=== PATIENT | male | born 1970 | race Caucasian/White ===

== ENCOUNTER 2019-05-23 22:17 | Inpatient (IN) ==
[2019-05-23] MEDS ORDERED: Ipratropium/Albuterol Neb 3 ML IH ONE (23:01)
[2019-05-23] MEDS ORDERED: Furosemide 40 MG/4 ML VIAL IVP ONE (23:01)
[2019-05-24 00:18] LABS: Hematocrit 33.5 % (37.5-50.1); Hemoglobin 10.1 g/dL (12.9-16.9); Immature Granulocytes % 0.3 % (0-4); Lymphocytes # 0.7 K/mcL (0.6-4.6); Lymphocytes % 10.9 %; Mean Corpuscular HGB Conc 30.1 g/dL (31.6-35.5); Mean Corpuscular Hemoglobin 22.7 pg (28.0-33.3); Mean Corpuscular Volume 75.5 fL (83.0-100.0); Mean Platelet Volume 10.7 fL (9.4-12.4); Monocytes # 0.2 K/mcL (0.0-1.3); Monocytes % 3.9 %; Neutrophils # 5.2 K/mcL (1.6-8.9); Platelet Count 190 K/mcL (140-400); Red Blood Count 4.44 M/mcL (4.19-5.50); Red Cell Distribution Width 22.7 % (11.5-14.5); Segmented Neutrophils % 84.9 %; White Blood Count 6.2 K/mcL (4.3-11.1)
[2019-05-24 00:21] LABS: ABG Base Excess 3 mEq/L (-2 to 3); ABG HCO3 27 mEq/L (21-27); ABG Oxygen Saturation 87 % (95-98); ABG PCO2 40 mmHg (35-45); ABG PH 7.44 pH Units (7.32-7.45); ABG PO2 51 mmHg (85-104); ABG TCO2 29 mEq/L (20-26)
[2019-05-24 00:39] LABS: Albumin 3.1 g/dL (3.5-5.7); Albumin/Globulin Ratio 0.8 (1.1-2.2); Bilirubin,Direct 0.6 mg/dL (0.0-0.2); Bilirubin,Indirect 0.5 mg/dL (0.0-1.2); Bilirubin,Total 1.1 mg/dL (0.3-1.0); Globulin 3.8 g/dL (2.4-3.5); Total Protein 6.9 g/dL (6.4-8.9)
[2019-05-24 00:54] LABS: BUN/Creatinine Ratio 40 (6-26); Blood Urea Nitrogen 44 mg/dL (6-20); Calcium 8.7 mg/dL (8.6-10.3); Carbon Dioxide 24 mEq/L (23-29); Chloride 97 mEq/L (98-107); Glucose 98 mg/dL (70-105); Osmolality,Calculated 287 (280-300); Potassium 3.4 mEq/L (3.5-5.1); Sodium 133 mEq/L (136-145); Troponin I 0.05 ng/mL (< 0.04); eGFR For African Americans > 60 (> 60); eGFR For Non-African Americans > 60 (> 60)
[2019-05-24] MEDS ORDERED: cefTRIAXone 2,000 MG in 0.9 % Sodium Chloride Mini Bag 100 ML IVPB ONE (01:27)
[2019-05-24] MEDS ORDERED: Isovue-370 500 ML BOTTLE IVP ONE (02:18)
[2019-05-24] MEDS ORDERED: *HR* LORazepam 2 MG/ML VIAL IVP ONE ×3 (04:43→23:07)
[2019-05-24] MEDS ORDERED: Naloxone 0.4 MG/ML INJ IVP PRN (08:15)
[2019-05-24 09:33] LABS: INR 1.5; Prothrombin Time 16.7 Seconds (9.4-12.1)
[2019-05-24 09:43] LABS: Albumin 2.9 g/dL (3.5-5.7)
[2019-05-24] MEDS: Ipratropium/Albuterol Neb 3 ML IH SCH ×3 (10:11→22:01)
[2019-05-24 15:48] LABS: ABG Base Excess 0 mEq/L (-2 to 3); ABG HCO3 25 mEq/L (21-27); ABG Oxygen Saturation 90 % (95-98); ABG PCO2 42 mmHg (35-45); ABG PH 7.39 pH Units (7.32-7.45); ABG PO2 60 mmHg (85-104); ABG TCO2 26 mEq/L (20-26)
[2019-05-24] MEDS ORDERED: Dexmedetomidine HCl 400 MCG/100 ML MLS IVC ONE (16:29)
[2019-05-24] MEDS: Furosemide 40 MG/4 ML VIAL IVP SCH ×2 (17:12→21:05)
[2019-05-24] MEDS: Doxycycline 100 MG in 0.9 % Sodium Chloride Mini Bag 100 ML IVPB SCH (17:17)
[2019-05-24] MEDS: Piperacillin/Tazobactam 3.375 GM in 0.9 % Sodium Chloride Mini Bag 100 ML IVPB SCH ×2 (17:17→23:21)
[2019-05-24] MEDS: Dexmedetomidine HCl 400 MCG/100 ML MLS IVC SCH ×2 (17:18→23:14)
[2019-05-24 18:27] LABS: BUN/Creatinine Ratio 47 (6-26); Blood Urea Nitrogen 42 mg/dL (6-20); Calcium 8.1 mg/dL (8.6-10.3); Carbon Dioxide 23 mEq/L (23-29); Chloride 103 mEq/L (98-107); Glucose 86 mg/dL (70-105); Osmolality,Calculated 294 (280-300); Potassium 3.2 mEq/L (3.5-5.1); Sodium 137 mEq/L (136-145); eGFR For African Americans > 60 (> 60); eGFR For Non-African Americans > 60 (> 60)
[2019-05-24 19:58] LABS: RBC,Pleural Fluid 0.008 M/mcL
[2019-05-24 20:10] LABS: Glucose,Pleural Fluid 110 mg/dL (No Ref Range); LDH,Pleural Fluid 97 Units/L (No Ref Range); Total Protein,Pleural Fluid < 3.0 g/dL
[2019-05-24 20:51] LABS: Appearance of Pleural Fl Hazy (Clear)
[2019-05-24 20:59] LABS: Basophils,Pleural Fluid 0 %; Eosinophils,Pleural Fluid 0 %
[2019-05-24] MEDS ORDERED: Amiodarone Premix 360 MG/200 ML BAG IVC ONE (21:00)
[2019-05-24] MEDS ORDERED: Perflutren Lipid Microsphere 1.3 ML in 0.9 % Sodium Chloride 8.7 ML IVP ONE (21:14)
[2019-05-25] MEDS ORDERED: Amiodarone Premix 360 MG/200 ML BAG IVC SCH (03:00)
[2019-05-25] MEDS: Ipratropium/Albuterol Neb 3 ML IH SCH ×4 (04:21→22:32)
[2019-05-25] MEDS: Dexmedetomidine HCl 400 MCG/100 ML MLS IVC SCH ×5 (04:29→21:00)
[2019-05-25 05:23] LABS: ABG Base Excess 2 mEq/L (-2 to 3); ABG HCO3 28 mEq/L (21-27); ABG Oxygen Saturation 98 % (95-98); ABG PCO2 48 mmHg (35-45); ABG PH 7.38 pH Units (7.32-7.45); ABG PO2 115 mmHg (85-104); ABG TCO2 29 mEq/L (20-26)
[2019-05-25 05:48] LABS: Hematocrit 37.7 % (37.5-50.1); Hemoglobin 11.1 g/dL (12.9-16.9); Immature Granulocytes % 0.2 % (0-4); Lymphocytes # 0.4 K/mcL (0.6-4.6); Mean Corpuscular HGB Conc 29.4 g/dL (31.6-35.5); Mean Corpuscular Hemoglobin 22.5 pg (28.0-33.3); Mean Corpuscular Volume 76.5 fL (83.0-100.0); Mean Platelet Volume 10.4 fL (9.4-12.4); Monocytes # 0.2 K/mcL (0.0-1.3); Neutrophils # 3.7 K/mcL (1.6-8.9); Platelet Count 148 K/mcL (140-400); Red Blood Count 4.93 M/mcL (4.19-5.50); Red Cell Distribution Width 23.9 % (11.5-14.5); Segmented Neutrophils % 85.8 %; White Blood Count 4.3 K/mcL (4.3-11.1)
[2019-05-25] MEDS: Doxycycline 100 MG in 0.9 % Sodium Chloride Mini Bag 100 ML IVPB SCH ×2 (06:05→18:19)
[2019-05-25 06:06] LABS: BUN/Creatinine Ratio 40 (6-26); Blood Urea Nitrogen 39 mg/dL (6-20); Calcium 8.2 mg/dL (8.6-10.3); Carbon Dioxide 26 mEq/L (23-29); Chloride 103 mEq/L (98-107); Glucose 101 mg/dL (70-105); Osmolality,Calculated 302 (280-300); Potassium 3.3 mEq/L (3.5-5.1); Sodium 141 mEq/L (136-145); eGFR For African Americans > 60 (> 60); eGFR For Non-African Americans > 60 (> 60)
[2019-05-25 06:09] LABS: Anisocytosis 3+ (Not Present); Macrocytosis Present (Not Present); Microcytosis Present (Not Present); Platelet Estimate Normal (Normal); Poikilocytosis 1+ (Not Present); Target Cells 1+ (Not Present)
[2019-05-25] MEDS ORDERED: Potassium Phosphate 44 MEQ in 0.9 % Sodium Chloride 250 ML IVPB PRN (08:13)
[2019-05-25 08:29] LABS: Magnesium 1.8 mg/dL (1.6-2.6); Phosphorous 3.6 mg/dL (2.7-4.5)
[2019-05-25] MEDS ORDERED: cefTRIAXone 1,000 MG in Water for inj. (sterile) 10 ML IVP SCH (09:00)
[2019-05-25] MEDS: Piperacillin/Tazobactam 3.375 GM in 0.9 % Sodium Chloride Mini Bag 100 ML IVPB SCH ×3 (09:12→23:44)
[2019-05-25 09:21] LABS: VBG Ionized Calcium 1.01 mmol/L (1.15-1.35)
[2019-05-25] MEDS: Metoprolol XL (24 HR) Succ 25 MG TAB.ER.24H PO SCH (14:06)
[2019-05-25] MEDS: Calcium Gluconate 1gm/50mL 1 GM/50 ML BAG IVPB PRN (15:13)
[2019-05-25] MEDS: *HR* LORazepam 2 MG/ML VIAL IVP PRN (21:00)
[2019-05-25 22:02] LABS: Magnesium 2.1 mg/dL (1.6-2.6); Potassium 3.6 mEq/L (3.5-5.1)
[2019-05-26] MEDS: Ipratropium/Albuterol Neb 3 ML IH SCH ×4 (04:08→21:30)
[2019-05-26] MEDS: Doxycycline 100 MG in 0.9 % Sodium Chloride Mini Bag 100 ML IVPB SCH ×2 (05:34→17:55)
[2019-05-26 06:08] LABS: Eosinophils % 0.2 %; Immature Granulocytes % 0.2 % (0-4); Lymphocytes # 0.6 K/mcL (0.6-4.6); Lymphocytes % 11.6 %; Mean Corpuscular Hemoglobin 21.9 pg (28.0-33.3); Mean Corpuscular Volume 75.4 fL (83.0-100.0); Mean Platelet Volume 10.4 fL (9.4-12.4); Monocytes # 0.2 K/mcL (0.0-1.3); Monocytes % 3.4 %; Platelet Count 144 K/mcL (140-400); Red Blood Count 4.11 M/mcL (4.19-5.50); Red Cell Distribution Width 23.2 % (11.5-14.5); Segmented Neutrophils % 84.6 %; White Blood Count 4.7 K/mcL (4.3-11.1)
[2019-05-26] MEDS: *HR* LORazepam 2 MG/ML VIAL IVP PRN ×4 (06:08→22:48)
[2019-05-26] MEDS: Dexmedetomidine HCl 400 MCG/100 ML MLS IVC SCH ×4 (06:09→21:22)
[2019-05-26 06:13] LABS: Anisocytosis 2+ (Not Present); Platelet Estimate Normal (Normal)
[2019-05-26 06:15] LABS: BUN/Creatinine Ratio 42 (6-26); Blood Urea Nitrogen 38 mg/dL (6-20); Calcium 7.9 mg/dL (8.6-10.3); Carbon Dioxide 27 mEq/L (23-29); Chloride 109 mEq/L (98-107); Glucose 105 mg/dL (70-105); Osmolality,Calculated 303 (280-300); Phosphorous 3.6 mg/dL (2.7-4.5); Potassium 3.5 mEq/L (3.5-5.1); Sodium 142 mEq/L (136-145); eGFR For African Americans > 60 (> 60); eGFR For Non-African Americans > 60 (> 60)
[2019-05-26] MEDS ORDERED: *HR* Metoprolol 5 MG/5 ML VIAL IVP ONE (07:51)
[2019-05-26] MEDS: Metoprolol XL (24 HR) Succ 25 MG TAB.ER.24H PO SCH (07:56)
[2019-05-26] MEDS: Piperacillin/Tazobactam 3.375 GM in 0.9 % Sodium Chloride Mini Bag 100 ML IVPB SCH ×3 (08:00→23:52)
[2019-05-26 10:46] LABS: ABG Base Excess 3 mEq/L (-2 to 3); ABG HCO3 29 mEq/L (21-27); ABG Oxygen Saturation 83 % (95-98); ABG PCO2 49 mmHg (35-45); ABG PH 7.38 pH Units (7.32-7.45); ABG PO2 49 mmHg (85-104); ABG TCO2 30 mEq/L (20-26)
[2019-05-27] MEDS: *HR* LORazepam 2 MG/ML VIAL IVP PRN ×5 (00:39→19:20)
[2019-05-27] MEDS: Dexmedetomidine HCl 400 MCG/100 ML MLS IVC SCH ×5 (02:30→22:01)
[2019-05-27] MEDS: Ipratropium/Albuterol Neb 3 ML IH SCH ×4 (03:45→21:43)
[2019-05-27] MEDS: Doxycycline 100 MG in 0.9 % Sodium Chloride Mini Bag 100 ML IVPB SCH ×2 (06:18→17:05)
[2019-05-27] MEDS: Piperacillin/Tazobactam 3.375 GM in 0.9 % Sodium Chloride Mini Bag 100 ML IVPB SCH (07:21)
[2019-05-27] MEDS ORDERED: Aminoglycoside Consult 1 EACH MC ONE (07:54)
[2019-05-27] MEDS: Metoprolol XL (24 HR) Succ 25 MG TAB.ER.24H PO SCH (09:18)
[2019-05-27 09:44] LABS: VBG Ionized Calcium 1.16 mmol/L (1.15-1.35)
[2019-05-27] MEDS ORDERED: *HR* Etomidate 20 MG/10 ML AMPUL IVP ONE (09:59)
[2019-05-27] MEDS ORDERED: *HR* Midazolam HCl 5 MG/5 ML VIAL IVP ONE (09:59)
[2019-05-27 10:07] LABS: BUN/Creatinine Ratio 43 (6-26); Blood Urea Nitrogen 39 mg/dL (6-20); Calcium 8.5 mg/dL (8.6-10.3); Carbon Dioxide 28 mEq/L (23-29); Chloride 110 mEq/L (98-107); Glucose 106 mg/dL (70-105); Magnesium 2.1 mg/dL (1.6-2.6); Osmolality,Calculated 314 (280-300); Phosphorous 3.5 mg/dL (2.7-4.5); Potassium 3.5 mEq/L (3.5-5.1); Sodium 147 mEq/L (136-145); eGFR For African Americans > 60 (> 60); eGFR For Non-African Americans > 60 (> 60)
[2019-05-27] MEDS: Pantoprazole 40 MG VIAL IVP SCH (12:38)
[2019-05-27] MEDS ORDERED: *HR* FentaNYL (PF) 100 MCG/2 ML VIAL ONE (12:54)
[2019-05-27] MEDS: *HR* Heparin 5,000 UNIT/ML VIAL SQ SCH ×2 (13:55→22:23)
[2019-05-27] MEDS: *HR* FentaNYL (PF) 100 MCG/2 ML VIAL IVP PRN ×2 (13:56→17:59)
[2019-05-27] MEDS ORDERED: 0.9 % Sodium Chloride 1,000 ML IVC ONE (20:15)
[2019-05-27 20:26] LABS: ABG Base Excess 4 mEq/L (-2 to 3); ABG HCO3 29 mEq/L (21-27); ABG Oxygen Saturation 99 % (95-98); ABG PCO2 42 mmHg (35-45); ABG PH 7.45 pH Units (7.32-7.45); ABG PO2 128 mmHg (85-104); ABG TCO2 30 mEq/L (20-26)
[2019-05-27] MEDS ORDERED: 0.9 % Sodium Chloride 1,000 ML ONE (20:33)
[2019-05-27] MEDS: FentaNYL (PF) 1,000 MCG in 0.9 % Sodium Chloride 80 ML IVC SCH (21:08)
[2019-05-27] MEDS: Furosemide 240 MG in D5% in Water 96 ML IVC SCH (21:54)
[2019-05-27] MEDS: Norepinephrine 4 MG in D5% in Water 250 ML IVC SCH (22:50)
[2019-05-28] MEDS: Piperacillin/Tazobactam 3.375 GM in 0.9 % Sodium Chloride Mini Bag 100 ML IVPB SCH ×3 (00:21→15:29)
[2019-05-28] MEDS: Furosemide 240 MG in D5% in Water 96 ML IVC SCH (04:10)
[2019-05-28] MEDS: Ipratropium/Albuterol Neb 3 ML IH SCH ×4 (04:12→21:23)
[2019-05-28 04:18] LABS: Eosinophils % 0.5 %; Hematocrit 35.6 % (37.5-50.1); Immature Granulocytes % 0.4 % (0-4); Lymphocytes # 1.7 K/mcL (0.6-4.6); Mean Corpuscular HGB Conc 29.8 g/dL (31.6-35.5); Mean Corpuscular Hemoglobin 22.8 pg (28.0-33.3); Mean Corpuscular Volume 76.7 fL (83.0-100.0); Mean Platelet Volume 10.3 fL (9.4-12.4); Monocytes # 0.4 K/mcL (0.0-1.3); Monocytes % 4.7 %; Neutrophils # 5.7 K/mcL (1.6-8.9); Platelet Count 180 K/mcL (140-400); Red Blood Count 4.64 M/mcL (4.19-5.50); Red Cell Distribution Width 23.9 % (11.5-14.5); Segmented Neutrophils % 72.4 %
[2019-05-28 04:18] LABS: VBG Ionized Calcium 1.16 mmol/L (1.15-1.35)
[2019-05-28 04:19] LABS: Hemoglobin 10.6 g/dL (12.9-16.9); White Blood Count 7.8 K/mcL (4.3-11.1)
[2019-05-28 04:37] LABS: BUN/Creatinine Ratio 35 (6-26); Blood Urea Nitrogen 37 mg/dL (6-20); Calcium 8.3 mg/dL (8.6-10.3); Carbon Dioxide 24 mEq/L (23-29); Chloride 113 mEq/L (98-107); Glucose 98 mg/dL (70-105); Osmolality,Calculated 313 (280-300); Phosphorous 3.1 mg/dL (2.7-4.5); Potassium 3.7 mEq/L (3.5-5.1); Sodium 147 mEq/L (136-145); eGFR For African Americans > 60 (> 60); eGFR For Non-African Americans > 60 (> 60)
[2019-05-28 04:57] LABS: ABG Base Excess 0 mEq/L (-2 to 3); ABG HCO3 25 mEq/L (21-27); ABG Oxygen Saturation 97 % (95-98); ABG PCO2 40 mmHg (35-45); ABG PH 7.41 pH Units (7.32-7.45); ABG PO2 92 mmHg (85-104); ABG TCO2 26 mEq/L (20-26); Blood Gas Modality ASSIST CONTROL; Blood Gas VT 500 cc
[2019-05-28 05:04] LABS: Anisocytosis 2+ (Not Present); Ovalocytes 2+ (Not Present); Platelet Estimate Slight Decrease (Normal); Target Cells 2+ (Not Present); Tear Drop Cells 1+ (Not Present)
[2019-05-28] MEDS: FentaNYL (PF) 1,000 MCG in 0.9 % Sodium Chloride 80 ML IVC SCH ×2 (05:11→16:00)
[2019-05-28] MEDS: Doxycycline 100 MG in 0.9 % Sodium Chloride Mini Bag 100 ML IVPB SCH ×2 (05:14→17:51)
[2019-05-28] MEDS: *HR* Heparin 5,000 UNIT/ML VIAL SQ SCH ×3 (05:14→22:24)
[2019-05-28] MEDS: Dexmedetomidine HCl 400 MCG/100 ML MLS IVC SCH ×2 (05:24→19:39)
[2019-05-28] MEDS: Nystatin Cream 15 GM TUBE TP SCH ×4 (05:35→19:35)
[2019-05-28] MEDS: Pantoprazole 40 MG VIAL IVP SCH (08:42)
[2019-05-28] MEDS: Metoprolol XL (24 HR) Succ 25 MG TAB.ER.24H PO SCH ×2 (08:42→08:49)
[2019-05-28] MEDS ORDERED: Artificial Tears SOLN 15 ML BOTTLE BOTH EYES PRN (10:34)
[2019-05-28] MEDS: Artificial Tears SOLN 15 ML BOTTLE BOTH EYES SCH ×3 (11:44→19:37)
[2019-05-28] MEDS: Chlorhexidine Rinse 15 ML MOUTHWASH MM SCH ×2 (11:44→19:38)
[2019-05-28] MEDS: *HR* Metoprolol 5 MG/5 ML VIAL IVP SCH ×2 (11:45→17:51)
[2019-05-28 11:55] LABS: ABG Base Excess 2 mEq/L (-2 to 3); ABG HCO3 26 mEq/L (21-27); ABG Oxygen Saturation 92 % (95-98); ABG PCO2 40 mmHg (35-45); ABG PH 7.43 pH Units (7.32-7.45); ABG PO2 61 mmHg (85-104); ABG TCO2 27 mEq/L (20-26); Blood Gas Modality ASSIST CONTROL; Blood Gas VT 500 cc
[2019-05-28 13:50] LABS: ABG Base Excess 1 mEq/L (-2 to 3); ABG HCO3 26 mEq/L (21-27); ABG Oxygen Saturation 95 % (95-98); ABG PCO2 45 mmHg (35-45); ABG PH 7.38 pH Units (7.32-7.45); ABG PO2 76 mmHg (85-104); ABG TCO2 28 mEq/L (20-26); Blood Gas Modality ASSIST CONTROL; Blood Gas VT 450 cc
[2019-05-28] MEDS ORDERED: *HR* Dextrose 50 % in Water (Syg) 50 ML SYRINGE IVP PRN (18:08)
[2019-05-28] MEDS ORDERED: Dextrose Gel 15 GM/37.5 ML TUBE PO PRN ×2 (18:08)
[2019-05-28] MEDS ORDERED: D5% in Water 1,000 ML IVC PRN (18:08)
[2019-05-28] MEDS: Silvasorb 44.4 ML TUBE TP SCH (19:36)
[2019-05-28] MEDS: Insulin LISPRO 300 UNITS/3 ML VIAL SQ SCH (19:37)
[2019-05-28] MEDS: Norepinephrine 4 MG in D5% in Water 250 ML IVC SCH (21:17)
[2019-05-29] MEDS: Insulin LISPRO 300 UNITS/3 ML VIAL SQ SCH ×7 (00:46→23:22)
[2019-05-29] MEDS: *HR* Metoprolol 5 MG/5 ML VIAL IVP SCH ×5 (00:46→23:20)
[2019-05-29] MEDS: Artificial Tears SOLN 15 ML BOTTLE BOTH EYES SCH ×4 (00:46→13:44)
[2019-05-29] MEDS: Piperacillin/Tazobactam 3.375 GM in 0.9 % Sodium Chloride Mini Bag 100 ML IVPB SCH ×4 (00:46→23:20)
[2019-05-29] MEDS: Dexmedetomidine HCl 400 MCG/100 ML MLS IVC SCH ×2 (00:47→17:32)
[2019-05-29] MEDS: FentaNYL (PF) 1,000 MCG in 0.9 % Sodium Chloride 80 ML IVC SCH (00:48)
[2019-05-29] MEDS: Ipratropium/Albuterol Neb 3 ML IH SCH ×4 (03:22→22:27)
[2019-05-29 04:59] LABS: VBG Ionized Calcium 1.09 mmol/L (1.15-1.35)
[2019-05-29 05:01] LABS: Basophils % 0.2 %; Hematocrit 36.2 % (37.5-50.1); Hemoglobin 10.3 g/dL (12.9-16.9); Immature Granulocytes % 0.5 % (0-4); Lymphocytes # 1.2 K/mcL (0.6-4.6); Lymphocytes % 18.8 %; Mean Corpuscular HGB Conc 28.5 g/dL (31.6-35.5); Mean Corpuscular Hemoglobin 22.2 pg (28.0-33.3); Mean Corpuscular Volume 77.8 fL (83.0-100.0); Mean Platelet Volume 10.7 fL (9.4-12.4); Monocytes # 0.5 K/mcL (0.0-1.3); Monocytes % 7.3 %; Neutrophils # 4.6 K/mcL (1.6-8.9); Platelet Count 167 K/mcL (140-400); Red Blood Count 4.65 M/mcL (4.19-5.50); Red Cell Distribution Width 23.9 % (11.5-14.5); Segmented Neutrophils % 73.2 %; White Blood Count 6.3 K/mcL (4.3-11.1)
[2019-05-29 05:13] LABS: ABG Base Excess 2 mEq/L (-2 to 3); ABG HCO3 30 mEq/L (21-27); ABG Oxygen Saturation 92 % (95-98); ABG PCO2 57 mmHg (35-45); ABG PH 7.32 pH Units (7.32-7.45); ABG PO2 71 mmHg (85-104); ABG TCO2 31 mEq/L (20-26); Blood Gas Modality AF; Blood Gas VT 450 cc
[2019-05-29 05:22] LABS: BUN/Creatinine Ratio 31 (6-26); Blood Urea Nitrogen 45 mg/dL (6-20); Calcium 8.4 mg/dL (8.6-10.3); Carbon Dioxide 26 mEq/L (23-29); Chloride 114 mEq/L (98-107); Glucose 125 mg/dL (70-105); Magnesium 1.9 mg/dL (1.6-2.6); Osmolality,Calculated 321 (280-300); Phosphorous 4.9 mg/dL (2.7-4.5); Potassium 4.2 mEq/L (3.5-5.1); Sodium 149 mEq/L (136-145); eGFR For African Americans > 60 (> 60); eGFR For Non-African Americans 52 (> 60)
[2019-05-29] MEDS: *HR* Heparin 5,000 UNIT/ML VIAL SQ SCH ×3 (05:46→23:20)
[2019-05-29] MEDS: Doxycycline 100 MG in 0.9 % Sodium Chloride Mini Bag 100 ML IVPB SCH ×2 (05:46→18:29)
[2019-05-29 05:59] LABS: Anisocytosis 2+ (Not Present); Hypochromasia Present (Not Present); Platelet Estimate Normal (Normal)
[2019-05-29] MEDS ORDERED: risperiDONE 1 MG TABLET PO ONE (07:39)
[2019-05-29] MEDS: Chlorhexidine Rinse 15 ML MOUTHWASH MM SCH ×2 (09:07→19:45)
[2019-05-29] MEDS: Pantoprazole 40 MG VIAL IVP SCH (09:11)
[2019-05-29] MEDS: Nystatin Cream 15 GM TUBE TP SCH ×3 (09:14→19:45)
[2019-05-29] MEDS ORDERED: Ziprasidone 10 MG in Water for inj. (sterile) 0.5 ML IM ONE (15:28)
[2019-05-29] MEDS: Silvasorb 44.4 ML TUBE TP SCH (17:30)
[2019-05-29] MEDS: Norepinephrine 4 MG in D5% in Water 250 ML IVC SCH (17:32)
[2019-05-29] MEDS: *HR* FentaNYL (PF) 100 MCG/2 ML VIAL IVP PRN (20:18)
[2019-05-29] MEDS: Ziprasidone 10 MG in Water for inj. (sterile) 0.5 ML IM PRN (21:57)
[2019-05-30] MEDS: Dexmedetomidine HCl 400 MCG/100 ML MLS IVC SCH ×2 (01:08→07:25)
[2019-05-30] MEDS: *HR* LORazepam 2 MG/ML VIAL IVP PRN ×2 (01:53→06:40)
[2019-05-30] MEDS: Norepinephrine 4 MG in D5% in Water 250 ML IVC SCH (03:23)
[2019-05-30] MEDS: Insulin LISPRO 300 UNITS/3 ML VIAL SQ SCH ×6 (03:23→23:07)
[2019-05-30 03:26] LABS: VBG Ionized Calcium 1.09 mmol/L (1.15-1.35)
[2019-05-30 03:47] LABS: Calcium 8.2 mg/dL (8.6-10.3); Phosphorous 4.6 mg/dL (2.7-4.5); Potassium 4.2 mEq/L (3.5-5.1)
[2019-05-30] MEDS: Ipratropium/Albuterol Neb 3 ML IH SCH ×4 (03:50→21:55)
[2019-05-30] MEDS: Ziprasidone 10 MG in Water for inj. (sterile) 0.5 ML IM PRN (04:19)
[2019-05-30] MEDS: *HR* Metoprolol 5 MG/5 ML VIAL IVP SCH ×4 (05:16→23:06)
[2019-05-30] MEDS: Calcium Gluconate 1gm/50mL 1 GM/50 ML BAG IVPB PRN (05:16)
[2019-05-30] MEDS: *HR* Heparin 5,000 UNIT/ML VIAL SQ SCH ×3 (05:16→23:06)
[2019-05-30] MEDS: Doxycycline 100 MG in 0.9 % Sodium Chloride Mini Bag 100 ML IVPB SCH ×2 (05:17→17:54)
[2019-05-30 05:35] LABS: Nucleated Red Blood Cells 0.3 /100 WBC (0)
[2019-05-30 05:37] LABS: Basophils % 0.2 %; Hematocrit 36.5 % (37.5-50.1); Hemoglobin 10.7 g/dL (12.9-16.9); Immature Granulocytes % 0.5 % (0-4); Immature Platelets 7.5 % (1.1-6.1); Lymphocytes # 1.7 K/mcL (0.6-4.6); Lymphocytes % 25.9 %; Mean Corpuscular HGB Conc 29.3 g/dL (31.6-35.5); Mean Corpuscular Hemoglobin 22.2 pg (28.0-33.3); Mean Corpuscular Volume 75.9 fL (83.0-100.0); Monocytes # 0.5 K/mcL (0.0-1.3); Monocytes % 7.8 %; Neutrophils # 4.2 K/mcL (1.6-8.9); Platelet Count 173 K/mcL (140-400); Red Blood Count 4.81 M/mcL (4.19-5.50); Red Cell Distribution Width 23.8 % (11.5-14.5); Segmented Neutrophils % 65.6 %; White Blood Count 6.4 K/mcL (4.3-11.1)
[2019-05-30 05:57] LABS: Acanthocytes 1+ (Not Present); Anisocytosis 1+ (Not Present); Hypochromasia Present (Not Present); Microcytosis Present (Not Present)
[2019-05-30 05:58] LABS: Platelet Estimate Normal (Normal); Poikilocytosis 2+ (Not Present); Polychromasia 1+ (Not Present); Target Cells 1+ (Not Present)
[2019-05-30] MEDS: Piperacillin/Tazobactam 3.375 GM in 0.9 % Sodium Chloride Mini Bag 100 ML IVPB SCH (08:00)
[2019-05-30] MEDS: Chlorhexidine Rinse 15 ML MOUTHWASH MM SCH ×2 (08:00→19:54)
[2019-05-30] MEDS: Pantoprazole 40 MG VIAL IVP SCH (08:01)
[2019-05-30] MEDS: Nystatin Cream 15 GM TUBE TP SCH ×3 (08:01→19:54)
[2019-05-30] MEDS ORDERED: Lidocaine -MPF 1% 5 ML AMPUL INFILT ONE (09:30)
[2019-05-30] MEDS ORDERED: D5% in Water 500 ML IVC ONE (10:27)
[2019-05-30] MEDS: Silvasorb 44.4 ML TUBE TP SCH (19:54)
[2019-05-31] MEDS: Ziprasidone 10 MG in Water for inj. (sterile) 0.5 ML IM PRN (00:18)
[2019-05-31] MEDS: *HR* LORazepam 2 MG/ML VIAL IVP PRN ×3 (00:50→16:40)
[2019-05-31] MEDS: Insulin LISPRO 300 UNITS/3 ML VIAL SQ SCH ×2 (03:30→08:28)
[2019-05-31 04:11] LABS: Immature Granulocytes % 0.6 % (0-4)
[2019-05-31 04:13] LABS: Basophils % 0.2 %; Hematocrit 33.3 % (37.5-50.1); Hemoglobin 9.7 g/dL (12.9-16.9); Immature Platelets 8.9 % (1.1-6.1); Mean Corpuscular HGB Conc 29.1 g/dL (31.6-35.5); Mean Corpuscular Hemoglobin 21.9 pg (28.0-33.3); Mean Corpuscular Volume 75.2 fL (83.0-100.0); Mean Platelet Volume 11.5 fL (9.4-12.4); Monocytes # 0.3 K/mcL (0.0-1.3); Monocytes % 4.3 %; Neutrophils # 4.8 K/mcL (1.6-8.9); Nucleated Red Blood Cells 0.3 /100 WBC (0); Platelet Count 158 K/mcL (140-400); Red Blood Count 4.43 M/mcL (4.19-5.50); Red Cell Distribution Width 23.2 % (11.5-14.5); Segmented Neutrophils % 72.9 %; White Blood Count 6.6 K/mcL (4.3-11.1)
[2019-05-31 04:15] LABS: Lymphocytes # 1.5 K/mcL (0.6-4.6)
[2019-05-31 04:23] LABS: BUN/Creatinine Ratio 42 (6-26); Blood Urea Nitrogen 61 mg/dL (6-20); Calcium 8.4 mg/dL (8.6-10.3); Carbon Dioxide 26 mEq/L (23-29); Chloride 107 mEq/L (98-107); Glucose 114 mg/dL (70-105); Osmolality,Calculated 330 (280-300); Phosphorous 3.9 mg/dL (2.7-4.5); Potassium 3.9 mEq/L (3.5-5.1); Sodium 151 mEq/L (136-145); eGFR For African Americans > 60 (> 60); eGFR For Non-African Americans 52 (> 60)
[2019-05-31 04:25] LABS: VBG Ionized Calcium 1.12 mmol/L (1.15-1.35)
[2019-05-31] MEDS: Ipratropium/Albuterol Neb 3 ML IH SCH ×2 (04:35→09:30)
[2019-05-31] MEDS: Doxycycline 100 MG in 0.9 % Sodium Chloride Mini Bag 100 ML IVPB SCH (05:30)
[2019-05-31] MEDS: *HR* Heparin 5,000 UNIT/ML VIAL SQ SCH ×3 (05:31→20:35)
[2019-05-31] MEDS: *HR* Metoprolol 5 MG/5 ML VIAL IVP SCH (05:31)
[2019-05-31 05:33] LABS: Anisocytosis 2+ (Not Present); Platelet Estimate Normal (Normal)
[2019-05-31 05:34] LABS: Polychromasia 1+ (Not Present)
[2019-05-31 05:35] LABS: Hypochromasia Present (Not Present); Target Cells 1+ (Not Present)
[2019-05-31] MEDS: Chlorhexidine Rinse 15 ML MOUTHWASH MM SCH (07:50)
[2019-05-31] MEDS: Pantoprazole 40 MG VIAL IVP SCH (07:50)
[2019-05-31] MEDS ORDERED: *HR* FentaNYL (PF) 100 MCG/2 ML VIAL IVP PRN (10:09)
[2019-05-31] MEDS ORDERED: D5% in Water 1,000 ML IVC PRN (10:09)
[2019-05-31] MEDS ORDERED: Dextrose Gel 15 GM/37.5 ML TUBE PO PRN ×2 (10:09)
[2019-05-31] MEDS ORDERED: *HR* Dextrose 50 % in Water (Syg) 50 ML SYRINGE IVP PRN (10:09)
[2019-05-31] MEDS ORDERED: Ziprasidone 10 MG in Water for inj. (sterile) 0.5 ML IM PRN (10:09)
[2019-05-31] MEDS ORDERED: Naloxone 0.4 MG/ML INJ IVP PRN (10:09)
[2019-05-31] MEDS ORDERED: *HR* Metoprolol 5 MG/5 ML VIAL IVP SCH (12:00)
[2019-05-31] MEDS ORDERED: Insulin LISPRO 300 UNITS/3 ML VIAL SQ SCH (12:00)
[2019-05-31] MEDS ORDERED: Ipratropium/Albuterol Neb 3 ML IH SCH (16:00)
[2019-05-31] MEDS: Nystatin Cream 15 GM TUBE TP SCH ×2 (16:06→20:35)
[2019-05-31] MEDS: carvediloL 6.25 MG TABLET PO SCH (16:40)
[2019-05-31] MEDS: *HR* Metoprolol 5 MG/5 ML VIAL IVP PRN ×2 (17:42→23:52)
[2019-05-31] MEDS ORDERED: Furosemide 40 MG/4 ML VIAL IVP ONE (17:55)
[2019-05-31] MEDS ORDERED: Furosemide 40 MG/4 ML VIAL ONE (17:58)
[2019-05-31] MEDS ORDERED: Doxycycline 100 MG in 0.9 % Sodium Chloride Mini Bag 100 ML IVPB SCH (18:00)
[2019-05-31 18:05] LABS: ABG Base Excess -4 mEq/L (-2 to 3); ABG HCO3 21 mEq/L (21-27); ABG Oxygen Saturation 91 % (95-98); ABG PCO2 35 mmHg (35-45); ABG PH 7.38 pH Units (7.32-7.45); ABG PO2 63 mmHg (85-104); ABG TCO2 22 mEq/L (20-26)
[2019-05-31 18:34] LABS: Eosinophils % 0.2 %; Immature Granulocytes % 0.5 % (0-4); Mean Corpuscular Hemoglobin 22.3 pg (28.0-33.3); Monocytes % 5.6 %; Nucleated Red Blood Cells 0.6 /100 WBC (0)
[2019-05-31 18:35] LABS: Hematocrit 36.4 % (37.5-50.1); Hemoglobin 10.3 g/dL (12.9-16.9); Lymphocytes # 1.4 K/mcL (0.6-4.6); Lymphocytes % 22.5 %; Mean Corpuscular HGB Conc 28.3 g/dL (31.6-35.5); Mean Corpuscular Volume 78.8 fL (83.0-100.0); Monocytes # 0.4 K/mcL (0.0-1.3); Neutrophils # 4.4 K/mcL (1.6-8.9); Platelet Count 172 K/mcL (140-400); Red Blood Count 4.62 M/mcL (4.19-5.50); Red Cell Distribution Width 23.9 % (11.5-14.5); Segmented Neutrophils % 71.2 %; White Blood Count 6.2 K/mcL (4.3-11.1)
[2019-05-31 18:54] LABS: Hypochromasia Present (Not Present); Target Cells 1+ (Not Present)
[2019-05-31 18:55] LABS: Burr Cells 1+ (Not Present); Large Platelets Present (Not Present)
[2019-05-31 19:01] LABS: BUN/Creatinine Ratio 45 (6-26); Blood Urea Nitrogen 58 mg/dL (6-20); Calcium 8.4 mg/dL (8.6-10.3); Carbon Dioxide 25 mEq/L (23-29); Chloride 105 mEq/L (98-107); Glucose 130 mg/dL (70-105); Osmolality,Calculated 326 (280-300); Potassium 4.3 mEq/L (3.5-5.1); Sodium 149 mEq/L (136-145); eGFR For African Americans > 60 (> 60); eGFR For Non-African Americans 59 (> 60)
[2019-05-31] MEDS ORDERED: Chlorhexidine Rinse 15 ML MOUTHWASH MM SCH (21:00)
[2019-05-31] MEDS: Levalbuterol Neb 1.25 MG/3 ML IH SCH (23:01)
[2019-06-01] MEDS ORDERED: Ondansetron 4 MG/2 ML VIAL IVP PRN (00:02)
[2019-06-01] MEDS: Levalbuterol Neb 1.25 MG/3 ML IH SCH ×4 (03:44→22:20)
[2019-06-01 03:53] LABS: Immature Granulocytes % 0.6 % (0-4); Mean Corpuscular Volume 76.7 fL (83.0-100.0)
[2019-06-01 03:55] LABS: Hematocrit 35.2 % (37.5-50.1); Hemoglobin 10.2 g/dL (12.9-16.9); Immature Platelets 9.1 % (1.1-6.1); Mean Corpuscular Hemoglobin 22.2 pg (28.0-33.3); Monocytes # 0.3 K/mcL (0.0-1.3); Monocytes % 5.3 %; Neutrophils # 3.8 K/mcL (1.6-8.9); Platelet Count 180 K/mcL (140-400); Red Blood Count 4.59 M/mcL (4.19-5.50); Red Cell Distribution Width 23.6 % (11.5-14.5); Segmented Neutrophils % 74.1 %; White Blood Count 5.1 K/mcL (4.3-11.1)
[2019-06-01 04:16] LABS: BUN/Creatinine Ratio 46 (6-26); Blood Urea Nitrogen 65 mg/dL (6-20); Calcium 8.3 mg/dL (8.6-10.3); Carbon Dioxide 23 mEq/L (23-29); Chloride 109 mEq/L (98-107); Glucose 55 mg/dL (70-105); Osmolality,Calculated 312 (280-300); Potassium 4.4 mEq/L (3.5-5.1); Sodium 143 mEq/L (136-145); eGFR For African Americans > 60 (> 60); eGFR For Non-African Americans 53 (> 60)
[2019-06-01] MEDS: *HR* Heparin 5,000 UNIT/ML VIAL SQ SCH ×3 (05:30→22:38)
[2019-06-01] MEDS: carvediloL 6.25 MG TABLET PO SCH (07:44)
[2019-06-01] MEDS: Nystatin Cream 15 GM TUBE TP SCH ×4 (07:48→20:18)
[2019-06-01] MEDS: Silvasorb 44.4 ML TUBE TP SCH ×2 (07:48→19:55)
[2019-06-01] MEDS ORDERED: Albumin 25% 25gram/100mL 25 GM/100 ML IV.SOLN IVPB ONE (13:21)
[2019-06-01] MEDS ORDERED: Furosemide 40 MG/4 ML VIAL IVP ONE (13:21)
[2019-06-01] MEDS: Piperacillin/Tazobactam 3.375 GM in 0.9 % Sodium Chloride Mini Bag 100 ML IVPB SCH ×2 (16:20→23:51)
[2019-06-02] MEDS: Levalbuterol Neb 1.25 MG/3 ML IH SCH ×4 (03:50→22:15)
[2019-06-02 04:29] LABS: Hematocrit 33.9 % (37.5-50.1)
[2019-06-02 04:30] LABS: Hemoglobin 9.9 g/dL (12.9-16.9); Mean Corpuscular HGB Conc 29.2 g/dL (31.6-35.5); Mean Corpuscular Hemoglobin 22.3 pg (28.0-33.3); Mean Corpuscular Volume 76.5 fL (83.0-100.0); Platelet Count 164 K/mcL (140-400); Red Blood Count 4.43 M/mcL (4.19-5.50); Red Cell Distribution Width 23.8 % (11.5-14.5); White Blood Count 5.3 K/mcL (4.3-11.1)
[2019-06-02 04:47] LABS: BUN/Creatinine Ratio 56 (6-26); Blood Urea Nitrogen 77 mg/dL (6-20); Calcium 8.3 mg/dL (8.6-10.3); Carbon Dioxide 26 mEq/L (23-29); Chloride 109 mEq/L (98-107); Glucose 110 mg/dL (70-105); Osmolality,Calculated 324 (280-300); Potassium 4.1 mEq/L (3.5-5.1); Sodium 145 mEq/L (136-145); eGFR For African Americans > 60 (> 60); eGFR For Non-African Americans 55 (> 60)
[2019-06-02] MEDS: *HR* Heparin 5,000 UNIT/ML VIAL SQ SCH ×3 (05:42→21:03)
[2019-06-02] MEDS: *HR* LORazepam 2 MG/ML VIAL IVP PRN ×2 (05:49→10:24)
[2019-06-02] MEDS: Piperacillin/Tazobactam 3.375 GM in 0.9 % Sodium Chloride Mini Bag 100 ML IVPB SCH ×3 (07:43→23:48)
[2019-06-02] MEDS: Nystatin Cream 15 GM TUBE TP SCH ×3 (07:44→21:04)
[2019-06-02] MEDS: Silvasorb 44.4 ML TUBE TP SCH (07:49)
[2019-06-02] MEDS ORDERED: Furosemide 20 MG/2 ML VIAL IVP ONE (11:04)
[2019-06-03] MEDS: *HR* LORazepam 2 MG/ML VIAL IVP PRN ×2 (03:08→14:49)
[2019-06-03 03:31] LABS: Hematocrit 32.7 % (37.5-50.1); Hemoglobin 9.6 g/dL (12.9-16.9); Immature Platelets 8.8 % (1.1-6.1); Mean Corpuscular HGB Conc 29.4 g/dL (31.6-35.5); Mean Corpuscular Hemoglobin 22.1 pg (28.0-33.3); Mean Corpuscular Volume 75.2 fL (83.0-100.0); Platelet Count 164 K/mcL (140-400); Red Blood Count 4.35 M/mcL (4.19-5.50); Red Cell Distribution Width 23.3 % (11.5-14.5); White Blood Count 6.5 K/mcL (4.3-11.1)
[2019-06-03 03:50] LABS: BUN/Creatinine Ratio 61 (6-26); Blood Urea Nitrogen 83 mg/dL (6-20); Calcium 8.3 mg/dL (8.6-10.3); Carbon Dioxide 26 mEq/L (23-29); Chloride 111 mEq/L (98-107); Glucose 103 mg/dL (70-105); Magnesium 2.1 mg/dL (1.6-2.6); Osmolality,Calculated 333 (280-300); Potassium 3.8 mEq/L (3.5-5.1); Sodium 149 mEq/L (136-145); eGFR For African Americans > 60 (> 60); eGFR For Non-African Americans 57 (> 60)
[2019-06-03] MEDS: Levalbuterol Neb 1.25 MG/3 ML IH SCH ×2 (03:55→09:34)
[2019-06-03] MEDS: *HR* Heparin 5,000 UNIT/ML VIAL SQ SCH (05:47)
[2019-06-03] MEDS ORDERED: Furosemide 20 MG/2 ML VIAL IVP SCH (08:00)
[2019-06-03] MEDS ORDERED: Perflutren Lipid Microsphere 1.3 ML in 0.9 % Sodium Chloride 8.7 ML IVP ONE (08:03)
[2019-06-03] MEDS ORDERED: Perflutren Lipid Microsphere 2 ML VIAL ONE (08:08)
[2019-06-03] MEDS: Piperacillin/Tazobactam 3.375 GM in 0.9 % Sodium Chloride Mini Bag 100 ML IVPB SCH (09:47)
[2019-06-03 10:12] LABS: Lactate Dehydrogenase 259 Units/L (140-271); Total Protein 5.8 g/dL (6.4-8.9)
[2019-06-03 14:55] LABS: RBC,Pleural Fluid 0.003 M/mcL
[2019-06-03 14:58] LABS: Appearance of Pleural Fl Clear (Clear)
[2019-06-03 15:07] LABS: Glucose,Pleural Fluid 102 mg/dL (No Ref Range); LDH,Pleural Fluid 105 Units/L (No Ref Range); Total Protein,Pleural Fluid < 3.0 g/dL
[2019-06-03 15:44] VITALS: BP 107/86
[2019-06-03 16:15] LABS: Basophils,Pleural Fluid 0 %; Eosinophils,Pleural Fluid 0 %
== END 2019-06-03 14:59 | disposition critical access hospital (66) | DRG 208 ==
LOC: 2ANU 22:17 → EMEROOARM 22:17 → SUATTDRO 05-24 06:48 → 2ANU 05-24 06:59 → 2NNU 05-24 14:49 → ICNU 05-24 16:55 → SUATTDRO 05-24 16:57 → 2ANU 05-31 10:54 → 2NNU 05-31 20:15
PROVIDERS: ADMIT Family Medicine; ATTEND Internal Medicine